=== PATIENT | female | born 1980 | race Caucasian/White ===

== ENCOUNTER 2025-01-09 11:53 | Emergency (ER) | payer MEDICAID ==
[~2025-01-09] VITALS: Ht 154.9 cm; Wt 51.4 kg
[2025-01-09 12:03] VITALS: BP 120/74; PULSE 96; RESP 16; TEMP 97.4; O2SAT 99
--- NOTE | 2025-01-09 12:12 | Physician Documentation ---
History of Present Illness ~ Chief Complaint: 5150 Stated Complaint: 5150 Time Seen by MD: 12:08 Primary Medical Doctor: NONE HPI This is a 44-year-old female who was brought in as a 5150 by the . Evidently, she was being evicted from her trailer today and was refusing to leave the property. When the tanning drum operator's arrived to help her evacuate the property, she became aggressive, was throwing things at them, and was requesting multiple times that they shoot me in the head. Ultimately, the patient was brought here for evaluation due to concerns for harm to herself and others. Medication Reconciliation Allergies: Coded Allergies: dextromethorphan (Verified Allergy, Intermediate, 06/06/13) diphenhydramine (Verified Allergy, Intermediate, 06/06/13) doxylamine (Verified Allergy, Intermediate, 06/06/13) hydrocodone (Verified Allergy, Intermediate, 06/06/13) ibuprofen (Verified Allergy, Intermediate, 06/06/13) pseudoephedrine (Verified Allergy, Intermediate, 06/06/13) Past Medical History Alcohol Use: Occasionally Drug Use: none Lives In: Home Occupation: employed Review of Systems ROS As stated above in the HPI, otherwise all systems are reviewed and negative. Physical Exam Vital Signs: Temperature: 97.4, Source: Temporal, Heart Rate: 96, Respiratory Rate: 16, BP: 120/74, Pulse Oximetry: 99, Weight: 51.360 Oxygen Flow Rate: 0 Physical Exam General: Alert, no apparent distress. Disheveled appearance. Neck: Full range of motion. Respiratory: Lungs clear, no respiratory distress. Chest: No accessory muscle use. Cardiovascular: Regular rate and rhythm, no murmurs. Gastrointestinal: Soft, nontender, nondistended. Bowels sounds present. Extremities: Normal range of motion, no deformity. Neurologic: Oriented x4. Psychiatric: Somewhat anxious with pressured speech. Skin: Normal color, warm and dry. No edema, no ecchymosis. Progress Progress Note Transfer orders for [facility]: At this time there is no evidence of an emergent medical condition that would preclude (admission/transfer) to a psychiatric unit via [facility] protocol for further psychiatric, as well as medical evaluation and treatment. At this time I have no reason to believe that transfer via [facility] protocol would have serious medical compromise in the patient's health. 1617: Nursing staff has tried multiple times to settle patient down with calm verbal interactions and redirection. These measures have been ineffective and patient has become progressively more agitated with verbally abusive language "You guys are fucking evil" and other use of foul speech. She was threatening to hurt the nursing staff and herself at this time. Ultimately, Zyprexa 2.5 mg IM was then administered for this reason. Results/Orders Results/Orders Completed Orders - AGNIESZKA VALENCIA NP Olanzapine Im (Zyprexa I.M. Im On (01/09/25 12:15) Olanzapine Im (Zyprexa I.M. Im On (01/09/25 16:20) Ondansetron Disint. Tablet (Zofran Odt T (01/09/25 16:20) Medications Received in ER Medications (Trade) Dose Ordered Sig/Roma Route PRN Reason Start Time Stop Time Status Last Admin Dose Admin (ZyPREXA I.M. IM ONLY) 1.25 mg ONCE ONCE IM 01/09/25 12:15 01/09/25 12:16 DC 01/09/25 12:15 1.25 MG Vital Signs 01/09/25 01/09/25 12:03 13:21 Temp 97.4 Pulse 96 Resp 16 B/P (MAP) 120/74 Pulse Ox 99 O2 Flow Rate 0 Laboratory Tests Test 01/09/25 12:31 01/09/25 12:35 01/09/25 12:42 Urine Specimen Description Voided Urine Color Yellow Urine Clarity Clear Urine pH 6.0 Urine Specific [place] >=1.030 Urine Protein Trace Urine Glucose (UA) Negative Urine Ketones Negative Urine Occult Blood Negative Urine Nitrite Negative Urine Bilirubin Negative Urine Urobilinogen 0.2 Urine Leukocyte Esterase Negative Urine RBC 0-2 Urine WBC 0-4 Urine Squamous Epithelial Cells Few Urine Calcium Oxalate Crystals 2+ Urine Amorphous Urates 1+ Urine Bacteria 2+ Urine Hyaline Casts 5-10 Volume Urine Centrifuged 10 ml Urine HCG, Qualitative Negative Urine Comment Urine Opiates Screen Negative Urine Methadone Screen Negative Urine Fentanyl Screen Negative Urine Barbiturates Screen Negative Urine Phencyclidine Screen Negative Urine Amphetamines Screen Positive Urine Benzodiazepines Screen Negative Urine Cocaine Screen Negative Urine Cannabinoids Screen Negative Drug Screen Comment SARS-CoV-2 Antigen (Rapid) Negative White Blood Count 11.0 Red Blood Count 4.69 Hemoglobin 14.5 Hematocrit 42.8 Mean Corpuscular Volume 91.3 Mean Corpuscular Hemoglobin 30.9 Mean Corpuscular Hemoglobin Concent 33.8 Red Cell Distribution Width 13.9 Platelet Count 283 Mean Platelet Volume 8.0 Neutrophils (%) (Auto) 78.9 H Lymphocytes (%) (Auto) 13.1 L Monocytes (%) (Auto) 6.1 Eosinophils (%) (Auto) 1.5 Basophils (%) (Auto) 0.4 Neutrophils # (Auto) 8.7 H Lymphocytes # (Auto) 1.4 Monocytes # (Auto) 0.7 Eosinophils # (Auto) 0.2 Basophils # (Auto) 0.0 CBC Comment Sodium Level 143 Potassium Level 4.7 Chloride Level 110 H Carbon Dioxide Level 27.5 Anion Gap 6 L Blood Urea Nitrogen 13 Creatinine 0.78 Estimated GFR/1.73 m2 81 BUN/Creatinine Ratio 16.7 Glucose Level 76 Calcium Level 9.3 Albumin 3.5 Thyroid Stimulating Hormone (TSH) 0.30 L Chemistry Comments Ethyl Alcohol Level < 10 Medical Decision Making Differential Dx:Considerations: Include: Alcohol abuse, Anxiety, Bipolar disorder, Conversion disorder, Depression, Encephaloathy, Homicidal, Panic disorder, Personality disorder, Schizophrenia, Substance abuse, Suicidal Differential Diagnosis 1650: Mental health clinician is here to evaluate patient and has determined that the 5150 hold can be lifted and that she is appropriate for discharge. At the time of this evaluation, patient is denying thoughts of harm to herself or others. Departure Time of Disposition: 16:51 Disposition: 30 STILL A PATIENT Impression: Primary Impression: Suicidal ideation Additional Impression: Anxiety disorder Discharge Instructions: Managing Anxiety, Adult, Suicidal Feelings: How to Help Yourself Additional Instructions: Please followup with your primary care and mental health providers. Please return for suicidal thoughts, severe depression or anxiety, or any other concerns. Referrals: NO PRIMARY CARE PROVIDER (PCP) Education Educated: Patient Educated regarding: diagnosis, treatment, prognosis, need for follow up Signature Scribe Signature: no scribe Attestation: The note accurately reflects work and decisions made by me.Agnieszka Sewell NP 01/09/25 14:11 AGNIESZKA VALENCIA NP January 09, 2025 12:12
[2025-01-09] MEDS: OLANZapine **IM** 10 mg inj. IM ONE (12:15)
[2025-01-09 12:52] LABS: BASOPHILS % (AUTO) 0.4 % (0-1); EOSINOPHILS # (AUTO) 0.2 X10'3 (0-0.9); EOSINOPHILS % (AUTO) 1.5 % (0-6); HEMATOCRIT 42.8 % (35.0-45.0); HEMOGLOBIN 14.5 g/dl (12.0-16.0); LYMPHOCYTES # (AUTO) 1.4 X10'3 (1.1-4.8); LYMPHOCYTES % (AUTO) 13.1 % (21-51); MEAN CORPUSCULAR HEMOGLOBIN 30.9 PG (27.0-31.0); MEAN CORPUSCULAR HGB CONC 33.8 g/dL (33.0-36.5); MEAN CORPUSCULAR VOLUME 91.3 FL (78-98); MONOCYTES # (AUTO) 0.7 X10'3 (0-0.9); MONOCYTES % (AUTO) 6.1 % (2-12); NEUTROPHILS # (AUTO) 8.7 X10'3 (1.8-7.7); NEUTROPHILS % (AUTO) 78.9 % (42-75); PLATELET COUNT 283 X10'3 (140-440); RED BLOOD COUNT 4.69 X10'6 (4.20-5.60); RED CELL DISTRIBUTION WIDTH 13.9 % (11.5-14.5)
[2025-01-09 13:16] LABS: ALBUMIN 3.5 G/DL (3.4-5.0); ANION GAP 6 (8-16); BLOOD UREA NITROGEN 13 MG/DL (7-18); BUN/CREATININE RATIO 16.7 (10.0-20.0); CALCIUM 9.3 MG/DL (8.5-10.1); CHLORIDE 110 MMOL/L (99-107); CREATININE 0.78 MG/DL (0.40-0.90); GLUCOSE 76 MG/DL (70-104); POTASSIUM 4.7 MMOL/L (3.5-5.1); SODIUM 143 MMOL/L (135-145); TOTAL CARBON DIOXIDE 27.5 MMOL/L (24-32); eCRCL 70 ML/MIN; eGFR 81 ML/MIN
[2025-01-09 13:19] LABS: ETHANOL < 10 MG/DL (<10)
[2025-01-09 13:36] LABS: URINE HCG NEGATIVE (NEG)
[2025-01-09 13:39] LABS: BILIRUBIN,URINE NEGATIVE (Neg); CLARITY,URINE CLEAR (Clear); COLOR,URINE YELLOW (Yellow); GLUCOSE, URINE NEGATIVE (Neg); KETONES,URINE NEGATIVE (Neg); LEUKOCYTE ESTERASE ,URINE NEGATIVE (Neg); NITRITES, URINE NEGATIVE (Neg); OCCULT BLOOD,URINE NEGATIVE (Neg); PROTEIN,URINE TRACE mg/dl (Neg); UROBILINOGEN,URINE 0.2 E.U/dL (0.2-1.0)
[2025-01-09 13:54] LABS: UA COLLECTION TYPE VOIDED
[2025-01-09 14:01] LABS: AMORPHOUS URATES 1+; BACTERIA,URINE 2+ /HPF (Neg); CAL OXALATE CRYSTALS 2+ /HPF (NEGATIVE); RBC,URINE 0-2 /HPF (0-2); SQUAMOUS EPITHELIAL CELL,UR FEW /LPF (FEW); WBC,URINE 0-4 /HPF (0-4)
[2025-01-09 14:31] LABS: URINE AMPHETAMINE SCREEN POSITIVE (Neg); URINE BARBITUATE SCREEN NEGATIVE (Neg); URINE BENZODIAZEPINES SCREEN NEGATIVE (Neg); URINE CANNABINOID SCREEN NEGATIVE (Neg); URINE COCAINE SCREEN NEGATIVE (Neg); URINE METHADONE SCREEN NEGATIVE (Neg); URINE OPIATE SCREEN NEGATIVE (Neg); URINE PHENCYCLIDINE SCREEN NEGATIVE (Neg)
[2025-01-09] MEDS ORDERED: ondansetron 4mg rapidly disintigrating tab PO ONE (16:20)
[2025-01-09] MEDS ORDERED: OLANZapine **IM** 10 mg inj. IM ONE (16:20)
== END 2025-01-09 17:22 | disposition home or self-care (01) ==
LOC: ER 11:53
DX: R45.851 Suicidal ideations (principal); F41.9 Anxiety disorder, unspecified; Z20.822 Contact with and (suspected) exposure to COVID-19; Z88.5 Allergy status to narcotic agent; Z88.6 Allergy status to analgesic agent
CPT/HCPCS: 36415; 80048; 80305; 80320; 81001; 81025; 84443; 85025; 87811; 96372; 99285; J3490